=== PATIENT | male | born 1940 | race Two or more races ===

== ENCOUNTER 2023-12-18 11:05 | Emergency (ER) | payer OTHER ==
[~2023-12-18] VITALS: Ht 160 cm; Wt 63.5 kg
[2023-12-18] MEDS ORDERED: AMLODIPINE-OLM1 EAC2 (11:24)
[2023-12-18] MEDS ORDERED: PROTONIX40 MG (11:25)
[2023-12-18] MEDS ORDERED: ARICEPT5 MG (11:25)
[2023-12-18 13:53] LABS: HEMATOCRIT 40.9 % (39.0-48.0); HEMOGLOBIN 13.6 g/dL (13-16.00); MEAN CELL VOLUME 85.7 fL (80.0-100.00); MEAN CORPUSCULAR HEMOGLOBIN 28.6 pg (27.00-32.0); MEAN CORPUSCULAR HGB CONC 33.4 g/dl (32.0-36.0); PLATELET COUNT 220 K/uL (150-450); RED BLOOD COUNT 4.77 M/uL (4.00-6.00); RED CELL DISTRIBUTION WIDTH 14.7 % (11.5-14.5)
[2023-12-18 14:39] LABS: ALBUMIN 2.7 gm/dL (3.4-5.0); BILIRUBIN TOTAL 0.71 mg/dL (0.3-1.2); BILIRUBIN,CONJUGATED 0.34 mg/dL (0.0-0.2); BILIRUBIN,UNCONJUGATED 0.37 mg/dL (0.0-0.6); CALCIUM 8.8 mg/dL (8.5-10.1); CREATININE SERUM 1.1 mg/dL (0.70-1.30); GFR 63.77; POTASSIUM 4.48 mEq/L (3.5-5.1); TOTAL PROTEIN 6.6 gm/dL (6.4-8.2)
[2023-12-18 14:57] LABS: PH,URINE 5.5 (5.0-8.0); URINE APPEARANCE Clear; URINE BILIRRUBIN Negative (NEGATIVE); URINE BLOOD Trace; URINE COLOR Yellow; URINE GLUCOSE Negative (NEGATIVE); URINE LEUKOCYTE Negative; URINE NITRATE Negative
[2023-12-18 15:00] LABS: URINE BACTERIA 18.8 uL (0.0-1933); URINE EPITHELIAL CELLS 4.9 uL (0.0-38.8); URINE RBC 21.4 uL (0.0-20.8); URINE WBC 14.9 uL (0.0-23.2)
[2023-12-18 15:11] LABS: URINE PROTEIN 100 (NEGATIVE)
== END 2023-12-18 15:47 | disposition home or self-care (01) ==
LOC: ER 11:06
PROVIDERS: General Practice
DX: R60.9 Edema, unspecified (principal)